=== PATIENT | female | born 1945 | race Caucasian/White ===

== ENCOUNTER 2017-06-10 10:57 | Emergency (ER) | payer MEDICARE ==
--- NOTE | 2017-06-10 12:57 | RAD ---
THREE VIEWS OF LEFT THUMB: INDICATION: History of gout. COMPARISON: None. FINDINGS: No periarticular erosive change or soft tissue calcifications are evident. No acute fracture is dem onstrated. IMPRESSION: No acute osseous abnormality. POS: [facility]
[2017-06-10 14:32] LABS: #Eosinphils 0.1 thou/uL (0.0-0.7); #Monocytes 0.8 thou/uL (0.11-0.59); #Neutrophils 9.9 thou/uL (1.40-6.50); %Basophils 0.3 % (0.0-1.0); %Eosinophils 0.5 % (0.0-10.0); %Lymphocytes 15.4 % (21.0-51.0); %Monocytes 6.2 % (0.0-10.0); Hematocrit 40.8 % (36.0-47.0); Mean Platelet Volume 8.2 fL (7.4-10.4); Red Blood Cell (RBC) Count 4.18 mill/uL (4.20-5.40); White Blood Cell (WBC) Count 12.7 thou/uL (4.8-10.8)
[2017-06-10 14:55] LABS: ALT (SGPT) 20 U/L (8-55); AST (SGOT) 22 U/L (5-34); Alkaline Phosphatase 83 U/L (40-150); Anion Gap 15 mmol/L (10-20); BUN (Urea Nitrogen) 22 mg/dL (9.8-20.1); Bilirubin, Total 0.5 mg/dL (0.2-1.2); Calc. Creatinine Clearance 0 mL/min (70-130); Calcium 9.5 mg/dL (7.8-10.44); Carbon Dioxide 29 mmol/L (23-31); Chloride 101 mmol/L (98-107); Estimated GFR-MDRD 50; Globulin 3.2 g/dL (2.4-3.5); Protein, Total 7.3 g/dL (6.0-8.3)
[2017-06-10] MEDS ORDERED: Indomethacin 25 mg Capsule PO SCH (16:00)
[2017-06-10] MEDS ORDERED: HYDROcodone/Acetaminophen 10/325 mg Tablet ONE (16:26)
[2017-06-10] MEDS ORDERED: predniSONE 20 MG TAB ONE (16:26)
== END 2017-06-10 16:35 | disposition home or self-care (01) ==
LOC: ERS 10:57
DX: M10.9 Gout, unspecified (principal); I25.119 Atherosclerotic heart disease of native coronary artery with unspecified angina pectoris; J45.909 Unspecified asthma, uncomplicated; E11.22 Type 2 diabetes mellitus with diabetic chronic kidney disease; N18.3 Chronic kidney disease, stage 3 (moderate); E03.9 Hypothyroidism, unspecified; K21.9 Gastro-esophageal reflux disease without esophagitis
CPT/HCPCS: 36415; 80053; 85025; 85652; J7506

== ENCOUNTER 2017-09-10 15:36 | Emergency (ER) | payer MEDICARE ==
[~2017-09-10 15:36] MED LIST: ISOVUE-370 76%-LOCM 1 ML ONE
[2017-09-10] MEDS ORDERED: Morphine 4 MG/ML VIAL ONE ×2 (16:36→20:49)
[2017-09-10] MEDS ORDERED: Water For Inject, Bacteriostat 30 ML ONE (16:36)
[2017-09-10] MEDS ORDERED: methylPREDNISolone Sod Succ/PF 125 MG/2 ML VIAL ONE (16:36)
--- NOTE | 2017-09-10 16:53 | RAD ---
CHEST ONE VIEW: 09/10/17 HISTORY: Chest pain. COMPARISON: 02/01/17. FINDINGS: The cardiac silhouette and pulmonary vasculature are unremarkable. Mediastinum is midline. There is n o confluent air space consolidation or evidence of pneumothorax. nurse monitoring leads overlie the cy st. IMPRESSION: No active cardiopulmonary abnormalities are demonstrated. POS: [facility]
[2017-09-10 16:56] LABS: #Monocytes 0.9 thou/uL (0.11-0.59); #Neutrophils 13.5 thou/uL (1.40-6.50); %Eosinophils 0.1 % (0.0-10.0); %Lymphocytes 6.2 % (21.0-51.0); %Monocytes 5.6 % (0.0-10.0); White Blood Cell (WBC) Count 15.4 thou/uL (4.8-10.8)
[2017-09-10 17:17] LABS: ALT (SGPT) 13 U/L (8-55); AST (SGOT) 14 U/L (5-34); Alkaline Phosphatase 91 U/L (40-150); Anion Gap 14 mmol/L (10-20); BUN (Urea Nitrogen) 35 mg/dL (9.8-20.1); Bilirubin, Total 0.6 mg/dL (0.2-1.2); Calc. Creatinine Clearance 0 mL/min (70-130); Calcium 9.1 mg/dL (7.8-10.44); Carbon Dioxide 24 mmol/L (23-31); Chloride 104 mmol/L (98-107); Estimated GFR-MDRD 39; Globulin 3.3 g/dL (2.4-3.5); Protein, Total 7.3 g/dL (6.0-8.3)
[2017-09-10 17:21] LABS: Troponin I Less than 0.010 ng/mL (< 0.028)
--- NOTE | 2017-09-10 18:14 | CT ---
CT ANGIO OF CHEST PERFORMED WITH INTRAVENOUS CONTRAST ENHANCEMENT WITH 3D RECONSTRUCTIONS: 09/10/17 HISTORY: Back pain with inspiration. History of end-stage renal disease. The lungs are clear of any infiltrative process. There is an approximately 4 mm right middle lobe nod ular density. There is some linear scarring in the left base. Thoracic aorta is normal in caliber. No signs of dissection. There is good pulmonary artery opacification. There is no CT evidence for pulmonary embolus. IMPRESSION: Visualized liver parenchyma is normal. Spleen is incompletely visualized although appears slightly pr ominent. IMPRESSION: 1. No CT evidence for pulmonary embolus. 2. The spleen is incompletely visualized but may be slightly enlarged. POS: [facility]
[2017-09-10 20:50] LABS: Bilirubin Negative (Negative); Blood, Urine Negative (Negative); Glucose, Urine (Dipstick) Negative (Negative); Ketone, Urine Negative (Negative); Nitrite Negative (Negative); Protein, Urine (Dipstick) Negative (Neg-Trace); Urobilinogen 0.2 mg/dL (0.2-1.0)
== END 2017-09-11 01:16 | disposition home or self-care (01) ==
LOC: ERS 15:36
DX: M19.90 Unspecified osteoarthritis, unspecified site (principal); E11.22 Type 2 diabetes mellitus with diabetic chronic kidney disease; N18.3 Chronic kidney disease, stage 3 (moderate); E03.9 Hypothyroidism, unspecified; J45.909 Unspecified asthma, uncomplicated; K21.9 Gastro-esophageal reflux disease without esophagitis; I25.10 Atherosclerotic heart disease of native coronary artery without angina pectoris
CPT/HCPCS: 71010; 71275; 80053; 81003; 82553; 83880; 84484; 85025; 85379; 93005; 96374; 96375; 96376; J2270; J2930

== ENCOUNTER 2017-09-22 02:52 | Emergency (ER) | payer MEDICARE ==
[2017-09-22] MEDS ORDERED: predniSONE 20 MG TAB ONE (05:46)
== END 2017-09-22 06:55 | disposition home or self-care (01) ==
LOC: ERS 02:52
DX: M10.9 Gout, unspecified (principal); M79.644 Pain in right finger(s); I25.10 Atherosclerotic heart disease of native coronary artery without angina pectoris; E11.9 Type 2 diabetes mellitus without complications; E03.9 Hypothyroidism, unspecified; K21.9 Gastro-esophageal reflux disease without esophagitis; J45.909 Unspecified asthma, uncomplicated; Z79.899 Other long term (current) drug therapy; Z79.84 Long term (current) use of oral hypoglycemic drugs
CPT/HCPCS: 99283; J7506

== ENCOUNTER 2017-11-08 15:31 | Emergency (ER) | payer MEDICARE ==
[2017-11-08 16:22] LABS: Bilirubin Negative (Negative); Blood, Urine Small (Negative); Clarity TURBID (Clear); Glucose, Urine (Dipstick) Negative (Negative); Leukocyte Large (Negative); Nitrite Negative (Negative); Protein, Urine (Dipstick) 100 mg/dL (Neg-Trace); Specific Gravity, Urine 1.025 (1.002-1.036); Urobilinogen 0.2 mg/dL (0.2-1.0); pH, Urine 5.5 (5.0-9.0)
[2017-11-08 16:25] LABS: Bacteria/HPF Rare-Few HPF (None Seen); Hyaline Casts/LPF 0-3 HYALINE CAST LPF (0-3 Hyaline); Pathc Cast-AUWi Flag 0.67 (0-2.49); RBC/HPF GREATER THAN 50-TNTC HPF (0-3); Squamous Epithelial 0-3 HPF (0-3)
[2017-11-08] MEDS ORDERED: Cephalexin 250 MG CAP PO SCH (16:45)
== END 2017-11-08 17:16 | disposition home or self-care (01) ==
LOC: ERS 15:31
DX: N39.0 Urinary tract infection, site not specified (principal); E11.22 Type 2 diabetes mellitus with diabetic chronic kidney disease; E03.9 Hypothyroidism, unspecified; H35.30 Unspecified macular degeneration; H26.9 Unspecified cataract; I25.10 Atherosclerotic heart disease of native coronary artery without angina pectoris; J45.909 Unspecified asthma, uncomplicated; K21.9 Gastro-esophageal reflux disease without esophagitis; N18.3 Chronic kidney disease, stage 3 (moderate); M10.9 Gout, unspecified; M81.0 Age-related osteoporosis without current pathological fracture; Z79.84 Long term (current) use of oral hypoglycemic drugs; Z79.899 Other long term (current) drug therapy
CPT/HCPCS: 81003; 81015; 87086; 99283

== ENCOUNTER 2017-11-08 20:32 | Observation (INO) | payer MEDICARE ==
[2017-11-08 20:59] LABS: #Basophils 0.1 thou/uL (0.0-0.2); #Lymphocytes 3.4 thou/uL (1.20-3.40); #Monocytes 0.9 thou/uL (0.11-0.59); #Neutrophils 10.6 thou/uL (1.40-6.50); %Basophils 0.6 % (0.0-1.0); %Eosinophils 0.3 % (0.0-10.0); %Lymphocytes 22.5 % (21.0-51.0); %Monocytes 6.1 % (0.0-10.0); %Neutrophils 70.5 % (42.0-75.0); Hemoglobin 12.6 g/dL (12.0-16.0); Mean Corpuscular HGB CONC 32.8 g/dL (32.0-36.0); Mean Corpuscular Hemoglobin 33.9 pg (27.0-31.0); Mean Platelet Volume 8.2 fL (7.4-10.4); Platelet Count 222 thou/uL (130-400); RBC Distribution Width 14.8 % (11.5-14.5); Red Blood Cell (RBC) Count 3.71 mill/uL (4.20-5.40)
[2017-11-08 21:18] LABS: ALT (SGPT) 14 U/L (8-55); AST (SGOT) 14 U/L (5-34); Albumin 4.6 g/dL (3.4-4.8); Alkaline Phosphatase 62 U/L (40-150); Anion Gap 15 mmol/L (10-20); BUN (Urea Nitrogen) 39 mg/dL (9.8-20.1); Bilirubin, Total 1.3 mg/dL (0.2-1.2); CK (CPK) 26 U/L (29-168); Calc. Creatinine Clearance 0 mL/min (70-130); Calcium 9.5 mg/dL (7.8-10.44); Carbon Dioxide 31 mmol/L (23-31); Chloride 95 mmol/L (98-107); Estimated GFR-MDRD 29; Globulin 2.9 g/dL (2.4-3.5); Glucose 90 mg/dL (80-115); Lipase 16 U/L (8-78); Potassium 3.3 mmol/L (3.5-5.1); Protein, Total 7.5 g/dL (6.0-8.3); Sodium 138 mmol/L (136-145)
[2017-11-08 21:22] LABS: CKMB 0.6 ng/mL (0-6.6); Troponin I Less than 0.010 ng/mL (< 0.028)
--- NOTE | 2017-11-08 21:22 | RAD ---
PORTABLE CHEST: 11/08/17 HISTORY: Chest pain. Lungs are clear. Heart and mediastinum appear normal. IMPRESSION: No acute abnormality. POS: [facility]
[2017-11-09] MEDS ORDERED: Cephalexin 250 MG CAP ONE (00:05)
[2017-11-09 00:39] LABS: Bilirubin Negative (Negative); Blood, Urine Moderate (Negative); Clarity CLOUDY (Clear); Glucose, Urine (Dipstick) Negative (Negative); Leukocyte Large (Negative); Nitrite Negative (Negative); Protein, Urine (Dipstick) Negative (Neg-Trace); Specific Gravity, Urine 1.025 (1.002-1.036); Urobilinogen 0.2 mg/dL (0.2-1.0)
[2017-11-09 00:41] LABS: Bacteria/HPF None Seen HPF (None Seen); Hyaline Casts/LPF 0-3 HYALINE CAST LPF (0-3 Hyaline); Squamous Epithelial 0-3 HPF (0-3)
[2017-11-09 00:51] LABS: Yeast-AUWi Flag 88.4 (0-25.0)
[2017-11-09 00:53] LABS: RBC/HPF 0-3 HPF (0-3); Yeast-All Forms None Seen HPF (None Seen)
[2017-11-09 00:57] LABS: Troponin I Less than 0.010 ng/mL (< 0.028)
[2017-11-09] MEDS ORDERED: Magnesium 2 GM/NS 0.9% 100 ML 2 GM in Premix Bag 1 BAG IVPB SCH (01:00)
[2017-11-09] MEDS ORDERED: Ondansetron HCl/PF 4 MG/2 ML Vial IVP PRN ×2 (01:53→08:07)
[2017-11-09] MEDS ORDERED: Ondansetron ODT 4 MG TAB SL PRN (01:53)
[2017-11-09] MEDS ORDERED: Acetaminophen 325 MG TAB PO PRN (01:53)
[2017-11-09] MEDS ORDERED: NS 0.9% w/ 40 MEQ KCL 1,000 ML IV SCH (02:00)
[2017-11-09] MEDS ORDERED: Diphenoxylate HCl/Atropine Tablet PO PRN (02:52)
[2017-11-09] MEDS ORDERED: HYDROcodone/Acetaminophen 5/325 mg Tablet PO PRN (02:56)
[2017-11-09] MEDS ORDERED: Mag-Al 1200 mg/1200 mg/30 ML UDCUP PO PRN ×2 (02:56→08:09)
[2017-11-09] MEDS ORDERED: Refresh (Polyvinyl Alcohol 1.4%/Povidone 0.6%) Opth Drops EA EYE PRN (03:00)
[2017-11-09] MEDS ORDERED: Allopurinol 100 MG TAB PO SCH (03:00)
[2017-11-09 04:14] VITALS: BMI 32.1
[2017-11-09 04:38] LABS: Troponin I 0.016 ng/mL (< 0.028)
[2017-11-09] MEDS ORDERED: Cephalexin 250 MG CAP PO SCH ×2 (07:00→12:00)
[2017-11-09] MEDS ORDERED: Carvedilol 6.25 MG TAB PO SCH (08:00)
[2017-11-09] MEDS ORDERED: Ondansetron ODT 4 MG TAB PO PRN (08:07)
[2017-11-09] MEDS ORDERED: HYDROcodone/Acetaminophen 10/325 mg Tablet PO PRN ×2 (08:09→08:26)
[2017-11-09] MEDS ORDERED: Nitroglycerin 0.4 MG TAB (25 Tab Bottle) SL PRN (08:09)
[2017-11-09] MEDS ORDERED: ALPRAZolam 0.5 MG TAB PO PRN (08:20)
[2017-11-09 08:28] VITALS: BP 143/63; TEMP 98.1
[2017-11-09] MEDS ORDERED: Betamethasone 0.1% Cream 15 GM TUBE TOP PRN (08:45)
[2017-11-09] MEDS ORDERED: Nystatin Cream 15 GM TUBE TOP PRN (08:45)
[2017-11-09] MEDS ORDERED: Estradiol 1 MG TAB PO SCH (09:00)
[2017-11-09] MEDS ORDERED: Albuterol Sulfate 1.25 MG/3 ML NEB NEB PRN (09:00)
[2017-11-09] MEDS ORDERED: Non-Formulary Item 1 EACH (Cephalexin [Keflex] 500 MG) PO SCH (09:00)
[2017-11-09] MEDS ORDERED: Non-Formulary Item 1 EACH (Bromfenac Sodium [Prolensa] 1 DROP) OP SCH (09:00)
[2017-11-09] MEDS ORDERED: Fluconazole 100 MG TAB PO PRN (09:00)
[2017-11-09] MEDS ORDERED: Benzonatate 100 MG CAP PO PRN (09:00)
[2017-11-09] MEDS ORDERED: Enoxaparin Sodium 40 MG/0.4 ML SYRINGE SC SCH (09:00)
[2017-11-09] MEDS ORDERED: hydrALAZINE 10 MG TAB PO SCH (09:00)
[2017-11-09] MEDS ORDERED: Aspirin 81 mg Enteric Coated Tablet PO SCH (10:45)
--- NOTE | 2017-11-09 11:13 | CON ---
DATE OF CONSULTATION: 11/09/2017 REASON FOR CONSULTATION: Chest pain. HISTORY OF PRESENT ILLNESS: Ms. Park is a 72-year-old woman. She brought her up here as he was having medical problems and also what sound like progressive dementia. She is unable to take care of all his medical needs. While she was here, she said she walked up some stairs, did some othe r things, that was okay, but later started having burning in her chest and then pain up in the middle of her chest up into her throat. She states this is different from the heart pain she has had befor e. She states she does have acid reflux. She took some antacid and it got better, but in view of he r history of coronary artery disease, it took her to the emergency room. The patient is feeling okay now. The patient describes it as a burning sensation. REVIEW OF SYSTEMS: Constitutional: No significant weight gain or loss. Vision: No changes. Heari ng: No changes. Pulmonary: No cough or wheezing. Gastrointestinal: No nausea, vomiting, diarrhea . Skin: No rashes. Neurologic: No unilateral weakness or numbness. Psychiatric: No unusual depression or anxiety. PAST MEDICAL AND SURGICAL HISTORY: Coronary artery disease, catheterization done many years ago. Sh dilan has been treated medically for coronary artery disease since the catheterization was done in 2008. She has not been having anginal type chest pain. MEDICATIONS: At home included, 1. Levothyroxine. 2. Omeprazole. 3. Carvedilol. 4. Spironolactone. 5. Torsemide, she takes on intermittent basis. 6. I do not see aspirin in her list. We will check with her. 7. I believe she is also on atorvastatin. FAMILY HISTORY: Negative for heart disease at a young age. SOCIAL HISTORY: No alcohol or tobacco. PHYSICAL EXAMINATION: GENERAL: A pleasant patient, in no distress. VITAL SIGNS: Blood pressure 143/63, pulse 76. EYES: Sclerae nonicteric. MOUTH: Mucous membranes moist. NECK: Supple, no lymphadenopathy. LUNGS: Clear, no wheezing, rales or rhonchi. CARDIAC: Normal S1, normal S2. There is no murmur, rub or gallop. ABDOMEN: Soft, nontender, no hepatosplenomegaly. EXTREMITIES: Warm, dry, no clubbing or cyanosis. There is no edema. She has good dorsalis pedis pu lses bilaterally. PERTINENT LABORATORY DATA AND IMAGING: Potassium was 3.3, magnesium is 1.5. She did have some reple tion of her electrolytes. The patient's cardiac enzymes were negative. EKG did not show ischemia. ASSESSMENT: 1. Chest pain, more suggestive of esophageal reflux. 2. History of coronary artery disease. 3. Negative cardiac enzymes. PLAN: 1. Recommended stress testing and had a prolonged discussion with the patient, she refuses. The pat gabby states she needs to be with her who is down in [place]. Explained to her, we can do th is probably within a few hours, but the patient refuses and wishes to have this done as an outpatient . She understands the recommendation is to do it here. 2. Aspirin, if she is not already on aspirin. 3. Continue statin as well as other medication.
[2017-11-09] MEDS ORDERED: metFORMIN 500 MG TAB PO SCH (17:00)
[2017-11-09] MEDS ORDERED: Mometasone/Formoterol 120 PUFF INHALER INH SCH (18:30)
[2017-11-09] MEDS ORDERED: Atorvastatin Calcium 40 MG TAB PO SCH (21:00)
[2017-11-10] MEDS ORDERED: Levothyroxine Sodium 25 MCG TAB PO SCH (06:00)
[2017-11-10] MEDS ORDERED: predniSONE 5 MG TAB PO SCH (08:00)
[2017-11-10] MEDS ORDERED: Aspirin 81 mg Enteric Coated Tablet PO SCH (09:00)
[2017-11-10] MEDS ORDERED: Spironolactone 25 MG TAB PO SCH (15:00)
--- NOTE | 2017-11-30 11:44 | EKG ---
Test Reason : CHEST PAIN Blood Pressure : / mmHG Vent. Rate : 088 BPM Atrial Rate : 088 BPM P-R Int : 144 ms QRS Dur : 072 ms QT Int : 370 ms P-R-T Axes : 057 025 043 degrees QTc Int : 447 ms Normal sinus rhythm Normal ECG Confirmed by WILIAM ALEJANDRO, HORACIO Babin ([id number]), video tape editor MAIA HARO ([id number]) on 11/30/2017 11:44:08 AM Referred By: WILIAM Confirmed By:HORACIO SWAIN MD
== END 2017-11-09 12:03 | disposition home or self-care (01) ==
LOC: ERS 20:32 → 2SW 23:40
PROVIDERS: ADMIT Internal Medicine; ATTEND Internal Medicine
DX: R07.9 Chest pain, unspecified (principal); L13.0 Dermatitis herpetiformis; M81.0 Age-related osteoporosis without current pathological fracture; I25.119 Atherosclerotic heart disease of native coronary artery with unspecified angina pectoris; E11.22 Type 2 diabetes mellitus with diabetic chronic kidney disease; N18.3 Chronic kidney disease, stage 3 (moderate); K21.9 Gastro-esophageal reflux disease without esophagitis; M10.9 Gout, unspecified; J45.909 Unspecified asthma, uncomplicated; H35.30 Unspecified macular degeneration; E11.319 Type 2 diabetes mellitus with unspecified diabetic retinopathy without macular edema; E11.36 Type 2 diabetes mellitus with diabetic cataract; Z79.2 Long term (current) use of antibiotics; Z79.52 Long term (current) use of systemic steroids; Z79.84 Long term (current) use of oral hypoglycemic drugs; Z79.890 Hormone replacement therapy; Z79.899 Other long term (current) drug therapy; Z88.8 Allergy status to other drugs, medicaments and biological substances; Z88.1 Allergy status to other antibiotic agents; Z98.51 Tubal ligation status; Z90.710 Acquired absence of both cervix and uterus; Z98.818 Other dental procedure status; Z98.890 Other specified postprocedural states
CPT/HCPCS: 71045; 80053; 82550; 82553; 82962; 83690; 83735; 84484 ×3; 85025; 87086; 93005; 94760 ×2; 96365; 99283; 99285; G0378; 36415; 36416; 81003; 81015; J3475

== ENCOUNTER 2018-01-12 05:45 | Emergency (ER) | payer MEDICARE ==
[2018-01-12] MEDS ORDERED: predniSONE 20 MG TAB ONE (09:04)
== END 2018-01-12 09:09 | disposition home or self-care (01) ==
LOC: ERS 05:45
DX: L13.0 Dermatitis herpetiformis (principal); M81.0 Age-related osteoporosis without current pathological fracture; I20.9 Angina pectoris, unspecified; K21.9 Gastro-esophageal reflux disease without esophagitis; M10.9 Gout, unspecified; J45.909 Unspecified asthma, uncomplicated; K52.9 Noninfective gastroenteritis and colitis, unspecified; E11.22 Type 2 diabetes mellitus with diabetic chronic kidney disease; N18.3 Chronic kidney disease, stage 3 (moderate); E03.9 Hypothyroidism, unspecified; Z79.84 Long term (current) use of oral hypoglycemic drugs; Z79.899 Other long term (current) drug therapy
CPT/HCPCS: 99283; J7506

== ENCOUNTER 2018-03-27 22:50 | Emergency (ER) | payer MEDICARE ==
[2018-03-28] MEDS ORDERED: Dexamethasone 10 MG/ML VIAL ONE (04:10)
== END 2018-03-28 05:10 | disposition home or self-care (01) ==
LOC: ERS 22:50
DX: J02.9 Acute pharyngitis, unspecified (principal); I25.10 Atherosclerotic heart disease of native coronary artery without angina pectoris; E11.22 Type 2 diabetes mellitus with diabetic chronic kidney disease; E03.9 Hypothyroidism, unspecified; K21.9 Gastro-esophageal reflux disease without esophagitis; I12.9 Hypertensive chronic kidney disease with stage 1 through stage 4 chronic kidney disease, or unspecified chronic kidney disease; N18.3 Chronic kidney disease, stage 3 (moderate); J45.909 Unspecified asthma, uncomplicated; Z79.84 Long term (current) use of oral hypoglycemic drugs; Z79.899 Other long term (current) drug therapy
CPT/HCPCS: 87081; 87430; 96372; J1100

== ENCOUNTER 2018-07-24 14:27 | Outpatient (CLI) | payer MEDICARE | END 2018-07-24 14:28 | disposition home or self-care (01) | LOC: BICMAMMO 14:27 | PROVIDERS: ATTEND Family Medicine | DX: Z91.89 Other specified personal risk factors, not elsewhere classified (principal); Z80.3 Family history of malignant neoplasm of breast | CPT/HCPCS: 77066; G0279 ==

== ENCOUNTER 2018-11-01 15:52 | Emergency (ER) | payer MEDICARE ==
--- NOTE | 2018-11-01 17:11 | RAD ---
PORTABLE CHEST ONE VIEW: 11/01/18 at 4:01 p.m. HISTORY: Shortness of breath. FINDINGS: Comparison made with exam of 11/08/17. The heart size is borderline. The lungs are expanded without focal areas of consolidation, pneumothor aces, leo pulmonary edema or pleural effusions. IMPRESSION: No acute process. POS: [facility]
[2018-11-01 17:36] LABS: #Eosinphils 0.1 thou/uL (0.0-0.7); #Lymphocytes 1.9 thou/uL (1.20-3.40); #Monocytes 0.8 thou/uL (0.11-0.59); #Neutrophils 7.9 thou/uL (1.40-6.50); %Basophils 0.4 % (0.0-1.0); %Eosinophils 0.7 % (0.0-10.0); %Lymphocytes 18.1 % (21.0-51.0); %Neutrophils 73.8 % (42.0-75.0); Mean Corpuscular Hemoglobin 32.3 pg (27.0-31.0); Mean Platelet Volume 8.2 fL (7.4-10.4); Platelet Count 157 thou/uL (130-400); RBC Distribution Width 12.9 % (11.5-14.5); Red Blood Cell (RBC) Count 3.73 mill/uL (4.20-5.40); White Blood Cell (WBC) Count 10.7 thou/uL (4.8-10.8)
--- NOTE | 2018-11-01 17:40 | CT ---
CT LUMBAR SPINE WITH CORONAL AND SAGITTAL REFORMATIONS: 11/01/18 HISTORY: Weakness, falls, low back pain. FINDINGS: The vertebral body heights are maintained. No fracture or subluxation is identified. Degenerative luis a nges are present. bulging discs are noted at L4-5 and L5-S1 levels. There is sigmoid diverticulosis. IMPRESSION: No evidence of fracture or subluxation in the lumbar spine. POS: [facility]
[2018-11-01 17:56] LABS: ALT (SGPT) 21 U/L (8-55); AST (SGOT) 14 U/L (5-34); Alkaline Phosphatase 69 U/L (40-150); Anion Gap 14 mmol/L (10-20); BUN (Urea Nitrogen) 29 mg/dL (9.8-20.1); Bilirubin, Total 0.5 mg/dL (0.2-1.2); Calc. Creatinine Clearance 0 mL/min (70-130); Calcium 9.4 mg/dL (7.8-10.44); Carbon Dioxide 20 mmol/L (23-31); Chloride 111 mmol/L (98-107); Estimated GFR-MDRD 53; Globulin 2.3 g/dL (2.4-3.5); Glucose 87 mg/dL (83-110); Potassium 3.9 mmol/L (3.5-5.1); Protein, Total 6.3 g/dL (6.0-8.3); Sodium 141 mmol/L (136-145)
== END 2018-11-01 19:20 | disposition home or self-care (01) ==
LOC: ERS 15:52
DX: M54.5 Low back pain (principal); E03.9 Hypothyroidism, unspecified; E11.22 Type 2 diabetes mellitus with diabetic chronic kidney disease; N18.3 Chronic kidney disease, stage 3 (moderate); H35.30 Unspecified macular degeneration; I25.10 Atherosclerotic heart disease of native coronary artery without angina pectoris; M10.9 Gout, unspecified; K21.9 Gastro-esophageal reflux disease without esophagitis; M19.90 Unspecified osteoarthritis, unspecified site; J45.909 Unspecified asthma, uncomplicated; Z79.84 Long term (current) use of oral hypoglycemic drugs; Z79.899 Other long term (current) drug therapy
CPT/HCPCS: 36415; 71045; 72131; 80053; 83880; 84484; 85025

== ENCOUNTER 2018-12-18 15:27 | Observation (INO) | payer MEDICARE ==
--- NOTE | 2018-12-18 16:19 | RAD ---
FChest AP view INDICATION: Shortness of breath COMPARISON: November 01, 2018 FINDINGS:There is stable mild cardiomegaly. The lungs are clear. No definite pleural effusion or pneu mothorax is evident. No acute osseous abnormality is evident. IMPRESSION: Stable mild cardiomegaly
[2018-12-18 16:39] LABS: #Eosinphils 0.1 thou/uL (0.0-0.7); #Lymphocytes 1.3 thou/uL (1.20-3.40); #Monocytes 0.6 thou/uL (0.11-0.59); #Neutrophils 4.3 thou/uL (1.40-6.50); %Basophils 0.3 % (0.0-1.0); %Eosinophils 1.4 % (0.0-10.0); %Lymphocytes 20.4 % (21.0-51.0); %Monocytes 9.4 % (0.0-10.0); %Neutrophils 68.4 % (42.0-75.0); Mean Corpuscular HGB CONC 32.1 g/dL (32.0-36.0); Mean Corpuscular Hemoglobin 30.5 pg (27.0-31.0); Mean Corpuscular Volume 94.9 fL (78.0-98.0); Platelet Count 191 thou/uL (130-400); RBC Distribution Width 13.5 % (11.5-14.5); Red Blood Cell (RBC) Count 3.93 mill/uL (4.20-5.40); White Blood Cell (WBC) Count 6.2 thou/uL (4.8-10.8)
[2018-12-18 16:53] LABS: ALT (SGPT) 17 U/L (8-55); AST (SGOT) 14 U/L (5-34); Albumin 3.8 g/dL (3.4-4.8); Alkaline Phosphatase 70 U/L (40-150); Anion Gap 13 mmol/L (10-20); BUN (Urea Nitrogen) 10 mg/dL (9.8-20.1); Bilirubin, Total 0.3 mg/dL (0.2-1.2); Calc. Creatinine Clearance 0 mL/min (70-130); Calcium 9.9 mg/dL (7.8-10.44); Carbon Dioxide 25 mmol/L (23-31); Chloride 110 mmol/L (98-107); Estimated GFR-MDRD 49; Globulin 2.4 g/dL (2.4-3.5); Glucose 81 mg/dL (83-110); Protein, Total 6.2 g/dL (6.0-8.3); Sodium 144 mmol/L (136-145)
[2018-12-18] MEDS ORDERED: Furosemide 40 MG/4 ML VIAL ONE (17:42)
--- NOTE | 2018-12-18 17:55 | CT ---
CT ANGIOGRAM OF THE CHEST: 12/18/18 HISTORY: Shortness of breath. COMPARISON: 09/10/17. TECHNIQUE: CT angiogram of the chest is performed in the axial plane. Three dimensional reformatted images are s ubmitted for interpretation. FINDINGS: No mediastinal mass, lymphadenopathy or hematoma. Heart size is within normal limits. No significant pericardial fluid. The thoracic aorta and upper abdominal aorta have a normal caliber. No periaortic fat stranding. Grossly, the solid organs are unremarkable. Trachea and central bronchi is patent. Scar/atelectasis in the lingula. No suspicious masses or conso lidation in the left upper lobe. Scar/atelectasis in the left lower lobe. No suspicious masses or con solidation in the left lower lobe. No suspicious masses or consolidation in the right lung. No pleura l effusion or pneumothorax. Adequate contrast opacification of the pulmonary arterial system to the level of the segmental arteri es. No filling defect to suggest a thromboembolism. No lytic or blastic lesions in the osseous structures. IMPRESSION: No evidence of pulmonary artery embolism to the level of the segmental arteries. POS: [facility]
[2018-12-18] MEDS ORDERED: Carvedilol 25 MG TAB PO SCH (18:00)
[2018-12-18] MEDS ORDERED: Carvedilol 6.25 MG TAB PO SCH (18:00)
[2018-12-18] MEDS ORDERED: Aspirin Chewable 81 MG TAB ONE (18:41)
[2018-12-18 19:57] LABS: Troponin I Less than 0.010 ng/mL (< 0.028)
[2018-12-18 21:47] VITALS: BMI 37.6
[2018-12-18] MEDS ORDERED: Dextrose 50% Abboject 50 ML SYRINGE SLOW IVP PRN (22:15)
[2018-12-18] MEDS ORDERED: HumaLOG 300 UNITS/3 ML VIAL SC PRN ×2 (22:15)
[2018-12-18] MEDS ORDERED: ALPRAZolam 1 MG TAB PO PRN (22:15)
[2018-12-18] MEDS ORDERED: cloNIDine 0.1 MG TAB PO PRN (22:15)
[2018-12-18] MEDS ORDERED: hydrALAZINE 20 MG/ML VIAL SLOW IVP PRN (22:15)
[2018-12-18] MEDS ORDERED: Dextrose 5% in Water 1,000 ML IV PRN (22:15)
[2018-12-18 23:01] LABS: Troponin I Less than 0.010 ng/mL (< 0.028)
[2018-12-19] MEDS ORDERED: Ketorolac Tromethamine 30 MG/ML VIAL IVP SCH (01:00)
--- NOTE | 2018-12-19 02:56 | HP ---
PRIMARY CARE PHYSICIAN: Dr. Mirza, but she admits she has not seen him for a quite some time. CHIEF COMPLAINT: "I was concerned about my medications." HISTORY OF PRESENT ILLNESS: Ms. Park is a pleasant 73-year-old female, who came to the emergency room with multiple medical complaints. She says she has been complaining of a bad headache. She also says she has been having diarrhea, off and on for the past 4 weeks. She says she has been retaining fluid especially in her lower extremities and her feet are hurting and she can barely walk. She also admits that she has not had her medications any of them in the past 5-6 weeks. She says that she relates this to the fact that she cannot get around. She says that because her has dementia and was placed in the long-term care facility, she does not have use of her car. It is kind of unclear how that is working, but she apparently has not been able to get out she says to the store, anywhere else. She cannot go to the doctor and says that she has a daughter who lives in [place] who does not return her calls and then another daughter who lives in [place], but has borderline personality disorder and cannot help, and she is also complaining of an itchy rash on her extremities and she says most of these problems did start after she stopped taking her medications. She says her medications are very expensive and she has trouble affording them as she does not have Medicare Part D. It appears as if most of her physical problems are chronic with the exception of the severe headache and she also says that she has had coronary artery disease in the past and that Dr. Heller had asked her to do a stress test a few years back, but she refused and says that she would refuse on this admission as well as she says she is "scared" of doing a pharmacological stress test. Otherwise, the patient has quite a few somatic complaints and it is very difficult to get a history as she tends to go off subject very quickly and most of the time she finds herself back on the conversation about her being in the nursing facility, but I was able to obtain that she does not have any chest pain right now. No PND, no orthopnea, but she does admit to increasing lower extremity edema and dyspnea on exertion. No fevers, no chills , and with the diarrhea, there is no blood in the stools and she does attribute this to "colitis." REVIEW OF SYSTEMS: All systems were reviewed and are negative except for that mentioned in the history of present illness. PAST MEDICAL HISTORY: Significant for coronary artery disease, colitis, diabetes mellitus type 2, hypothyroidism, gastroesophageal reflux disease, gout, asthma and chronic kidney disease, stage 3. PAST SURGICAL HISTORY: She has had a hysterectomy and bilateral tubal ligation. ALLERGIES: COLCHICINE, CIPRO AND VANCOMYCIN, ALL OF WHICH CAUSES RASH. SOCIAL HISTORY: She is , but her has dementia and is living in a long-term care facility. She has 2 daughters, 1 in [place], 1 in [place]. She says the 1 in [place] does not return her phone calls and her daughter in [place] has borderline personality disorder and cannot help her. She does have some grandchildren. She is a nonsmoker and nondrinker. She has not designated a medical [id number] because she says "who would I ask" and she would want CPR, but does not want to be intubated, therefore is a do not intubate. FAMILY HISTORY: No history of any heritable diseases. CURRENT MEDICATIONS: The patient was not able to tell me all of her medications. She did mention a few including torsemide, spironolactone, dapsone, and she says she gave the nurse a card with the rest of the medicines. PHYSICAL EXAMINATION: GENERAL: She is alert and oriented. She appears to be in no acute distress. She is well developed and well nourished. It is interesting that she does have quite a few bags packed and seemingly ready to go out like she was moving somewhere along with some personal care items and household supplies in her room as well. VITAL SIGNS: Her blood pressure was 185/77, heart rate 83, respiratory rate of 18, temperature was 97.3, and O2 saturation was 98% on room air. HEENT: Pupils are equal, round, and reactive. Extraocular muscles are intact. Her sclerae are anicteric. Throat, there is no erythema, no exudates. NECK: No adenopathy and no bruits. LUNGS: Clear to auscultation. There is no wheezing, no rales, no rhonchi. CARDIOVASCULAR: She has a normal S1, S2. There is no S3 or S4. No murmurs, clicks or rubs. ABDOMEN: Obese, it is soft, it is nontender and nondistended. Positive for bowel sounds. No rebound, no guarding, no organomegaly. EXTREMITIES: She has 1+ pitting edema. There is some mild erythema. There are no joint effusions in the knees, but she did have some what looks like tophaceous gout in the 5th finger of the right hand, and some joint deformities in her fingers. NEUROLOGIC: Cranial nerves 2 through 12 are grossly intact and her muscle strength is 5/5 in both upper and lower extremities. SKIN AND INTEGUMENT: She did have some erythematous lesions on her upper extremities and her back with a central denuded area and some mild erythema of her skin in her lower extremities. LABS AND X-RAY: Her sodium is 144, potassium 4.0, chloride is 110, CO2 is 25, BUN of 10, creatinine 1.10, glucose is 81. Troponin is less than 0.010. The white blood cell count 6.2, hemoglobin 12.0, hematocrit is 37.3, and platelet count is 191. D-dimer is 1.95. CT angiogram of the chest was negative for pulmonary embolism. She had an EKG that by my reading was sinus rhythm, the rate was 86. There were no ST wave changes. ASSESSMENT: This is a pleasant 73-year-old lady who comes in after she has been out of her medications for about 5-6 weeks. Her initial blood pressure in the emergency room was extremely elevated with blood pressures over 200 and her initial blood pressure was 228/79, another blood pressure of 239/92. 1.This likely represents a hypertensive urgency with the elevated blood pressure and headache as well as shortness of breath. She will be placed in observation, try to restart her back on her home medications as well as p.r.n. medications for elevated blood pressure. I suspect that the headache and the dyspnea are due to the blood pressure. However, I think it is reasonable to get an echocardiogram to assess her ejection fraction as she may have developed heart failure as a result of uncontrolled blood pressure. She has refused a stress test. 2. Diabetes mellitus. We will need to reconcile and restart her home medications for diabetes as well as a sliding scale. 3. Hypothyroidism. Again, reconcile and restart medications. 4. Asthma. Again, this appears to be stable. We will place her on p.r.n. DuoNeb. 5. We will place her on deep venous thrombosis and gastrointestinal prophylaxis , and consult Case Management for her social concerns. 6. Diarrhea. Will check stool for C. Difficile and Campylobacter Job ID: [id number] MTDD
[2018-12-19] MEDS: HYDROcodone/Acetaminophen 10/325 mg Tablet PO PRN ×3 (06:25→14:31)
[2018-12-19 07:17] LABS: Cardiac Risk 3.5 (Less than 4.5)
[2018-12-19] MEDS ORDERED: Estradiol 1 MG TAB PO SCH (09:00)
[2018-12-19] MEDS ORDERED: Allopurinol 100 MG TAB PO SCH (09:00)
[2018-12-19] MEDS ORDERED: Enoxaparin Sodium 40 MG/0.4 ML SYRINGE SC SCH (09:00)
[2018-12-19] MEDS ORDERED: predniSONE 5 MG TAB PO SCH (09:00)
[2018-12-19] MEDS ORDERED: Torsemide 100 MG TAB PO SCH (09:00)
[2018-12-19] MEDS ORDERED: Spironolactone 25 MG TAB PO SCH (09:00)
[2018-12-19] MEDS ORDERED: Non-Formulary Item 1 EACH (Spironolactone [Spironolactone] 50 MG) PO SCH (09:00)
[2018-12-19] MEDS: metFORMIN 500 MG TAB PO SCH ×2 (09:14→18:20)
[2018-12-19] MEDS: hydrALAZINE 10 MG TAB PO SCH ×2 (09:14→14:30)
[2018-12-19] MEDS: Carvedilol 6.25 MG TAB PO SCH ×2 (09:19→18:37)
[2018-12-19] MEDS ORDERED: Ketorolac Tromethamine 30 MG/ML VIAL IVP PRN (10:13)
[2018-12-19] MEDS ORDERED: Diphenoxylate HCl/Atropine Tablet PO PRN (11:31)
[2018-12-19 16:45] VITALS: BP 184/80; TEMP 97.7
[2018-12-19] MEDS ORDERED: Atorvastatin Calcium 40 MG TAB PO SCH (21:00)
--- NOTE | 2018-12-20 02:58 | DIS ---
DATE OF ADMISSION: 12/18/2018 DATE OF DISCHARGE: 12/19/2018 PRIMARY CARE PROVIDER: Dr. Daniel Vargas. DISCHARGE DIAGNOSES: 1. Hypertensive urgency. 2. Medication noncompliance. CONDITION OF PATIENT ON THE DAY OF DISCHARGE: Stable. I assessed Ms. Park on the day of discharge. She denies any chest pain or shortness of breath. PHYSICAL EXAMINATION: VITAL SIGNS: Stable. CARDIOVASCULAR: S1 and S2 are heard, regular. LUNGS: Clear to auscultation bilaterally. DISCHARGE MEDICATIONS: 1. Nitroglycerin p.r.n. 2. Zofran p.r.n. 3. Allopurinol 100 mg daily. 4. Alprazolam 0.5 mg 3 times a day as needed. 5. Benzonatate 100 mg three times a day as needed. 6. Dapsone 25 mg as needed. 7. Diazepam 10 mg two times a day as needed. 8. Lomotil as needed. 9. Estradiol 1 mg daily. 10. [place] p.r.n. 11. Metformin 1000 mg 2 times a day. 12. Prednisone 10 mg daily. 13. Atorvastatin 40 mg at bedtime. 14. Hydralazine 25 mg 3 times a day. 15. Synthroid 25 mcg daily. 16. Omeprazole 40 mg 2 times a day. 17. Spironolactone 50 mg daily. 18. Torsemide 100 mg daily. HOSPITAL COURSE: Ms. Park is a pleasant 73-year-old lady, who was admitted to [facility] on December 18, 2018, for hypertensive urgency. Please refer to Dr. Cannon's history and physical note dated December 18, 2018, for further details. She was started on blood pressure medications. Blood pressure improved. Please note that the patient has not taken her home medications in several days. Prescriptions are being renewed for atorvastatin, hydralazine, Synthroid, omeprazole, spironolactone, and torsemide. She is advised to follow up with her primary care provider for the remainder of medications. She also had a 2D echocardiogram done during this hospitalization. The report is pending at the time of this dictation. She is advised to follow up with her primary care provider for the report. Many thanks for allowing me to participate in your patient's care. Please feel free to contact me with any questions or concerns. During this hospitalization, she had triglycerides 170, cholesterol 207, LDL cholesterol 113, and HDL cholesterol 60. CT angiogram of the chest did not show any evidence of pulmonary artery embolism to the level of the segmental arteries. DISCHARGE DESTINATION: Home. Job ID: [id number] MTDD
--- NOTE | 2018-12-22 11:15 | DIS ---
DATE OF ADMISSION: 12/18/2018 DATE OF DISCHARGE: 12/19/2018 ADDENDUM: The patient's primary care provider is Dr. David Real, not Dr. Daniel Vargas. Also, the patient is being seen by social work administrator to help arrange her prescriptions. Job ID: [id number]
== END 2018-12-19 19:32 | disposition home or self-care (01) ==
LOC: ERS 15:27 → 2SW 20:14
PROVIDERS: ADMIT Family Medicine; ATTEND Family Medicine
DX: I16.0 Hypertensive urgency (principal); I12.9 Hypertensive chronic kidney disease with stage 1 through stage 4 chronic kidney disease, or unspecified chronic kidney disease; E11.22 Type 2 diabetes mellitus with diabetic chronic kidney disease; N18.3 Chronic kidney disease, stage 3 (moderate); I25.10 Atherosclerotic heart disease of native coronary artery without angina pectoris; E03.9 Hypothyroidism, unspecified; K21.9 Gastro-esophageal reflux disease without esophagitis; M10.9 Gout, unspecified; J45.909 Unspecified asthma, uncomplicated; K52.9 Noninfective gastroenteritis and colitis, unspecified; Z90.710 Acquired absence of both cervix and uterus; Z98.51 Tubal ligation status; Z88.8 Allergy status to other drugs, medicaments and biological substances; Z88.1 Allergy status to other antibiotic agents; Z91.14 Patient's other noncompliance with medication regimen; Z79.52 Long term (current) use of systemic steroids; Z79.84 Long term (current) use of oral hypoglycemic drugs; Z79.899 Other long term (current) drug therapy
CPT/HCPCS: 71045; 71275; 80053; 80061; 82962 ×2; 83630; 83880; 84484 ×2; 85025; 85379; 87324; 87449 ×2; 93005; 93306; 94760; 96372; 96374; 96375; 96376; 97139; 99285; G0378 ×2; 36415; 36416; J0360; J1650; J1885; J1940; J7512; Q9966